=== PATIENT | male | born 1995 | race Caucasian/White ===

== ENCOUNTER 2022-04-06 10:33 | Emergency (ER) | payer SELFPAY ==
[2022-04-06] MEDS ORDERED: fentaNYL 50 MCG/ML SDV IVPUSH ONE (10:51)
[2022-04-06] MEDS ORDERED: Sodium Chloride 0.9% 1,000 ML IV ONE (10:51)
[2022-04-06] MEDS ORDERED: Ketamine 500 mg/10 ML MDV IV ONE (11:05)
[2022-04-06] MEDS ORDERED: Propofol 200 MG/20 ML SDV IVPUSH ONE (11:06)
== END 2022-04-06 12:37 | disposition home or self-care (01) ==
LOC: MW.ED 10:33
DX: S43.015A Anterior dislocation of left humerus, initial encounter (principal); X50.1XXA Overexertion from prolonged static or awkward postures, initial encounter
CPT/HCPCS: 23650; 73030; 99283; J2704; J3010; J3490; J7030; 99284